=== PATIENT | female | born 1980 | race Caucasian/White ===

== ENCOUNTER → 2021-03-22 11:52 | Outpatient (CLI) | payer OTHER, SELFPAY ==
--- NOTE | ~2021-03-22 | XR_ITS ---
XR elbow RT min 3V DATE: 03/22/2021 12:46 INDICATION: Right arm pain TECHNIQUE: 4 views COMPARISON: None FINDINGS: No fracture or dislocation or joint effusion. No periosteal reaction or bone destruction. IMPRESSION: Negative Reviewed, dictated and finalized at location A. IMPRESSION: Negative
== END ==
PROVIDERS: PCP Family Medicine; Visit Provider Physician Assistant
DX: M79.601 Pain in right arm (principal)
CPT/HCPCS: 73080

== ENCOUNTER 2023-01-21 13:31 | Outpatient (CLI) | payer OTHER, SELFPAY ==
--- NOTE | ~2023-01-21 | PE_ITS ---
EXAMINATION: PET skull to mid thigh DATE: 01/21/2023 15:14 INDICATION: Mesenteric lymphadenopathy. TECHNIQUE: Blood glucose level was 99 mg/dL. 10.815 mCi of 18-fluorodeoxyglucose (18-FDG) was adminis tered i.v. Low dose computed tomography (CT) images were acquired from the base of the brain to the p roximal thighs for attenuation correction and anatomic localization. Automated exposure control was e mployed. Dose-length product (DLP) was 511 mGy-cm. Positron emission tomography (PET) images were acq uired in the same distribution. COMPARISON: None FINDINGS: Head/neck: There are no pathologically enlarged lymph nodes. Chest: There is no pneumonia or pleural effusion. The heart size is normal. No pericardial effusion. There are no pathologically enlarged lymph nodes. Abdomen/pelvis/proximal thighs: The liver, gallbladder, spleen, pancreas, adrenal glands, and kidneys are normal. There are surgical changes of the stomach. There are no pathologically enlarged lymph no pallavi. There is no free intraperitoneal fluid. There is an intrauterine device in expected position. Th e bones are unremarkable. IMPRESSION: 1. No lymphadenopathy. Reviewed, dictated and finalized at location A. IMPRESSION: 1. No lymphadenopathy.
[2023-01-21 13:51] LABS: Glucose Point of Care 99 mg/dl (65-105)
== END 2023-01-21 13:32 | disposition home or self-care (01) ==
PROVIDERS: PCP Internal Medicine; Visit Provider Internal Medicine
DX: R59.0 Localized enlarged lymph nodes (principal)
CPT/HCPCS: 78815; A9552

== ENCOUNTER 2024-07-22 13:53 | Outpatient (CLI) | payer OTHER, SELFPAY ==
--- NOTE | ~2024-07-22 | US_ITS ---
EXAM: PELVIC ULTRASOUND HISTORY: R10.2 - Pelvic and perineal pain . 2 para 2. COMPARISON: None. FINDINGS: UTERUS: 9.6 x 4.6 x 5.9 cm. The uterus is anteverted and anteflexed. The endometrial complex measures 6 mm. Trace free fluid within the endometrial canal. Intrauterine device is present, in good position. RIGHT OVARY: The right ovary is unremarkable in echogenicity and size measuring 2.5 x 1.9 x 2.6 cm. Arterial and venous flow are identified. LEFT OVARY: The left ovary is unremarkable in echogenicity and size measuring 2.9 x 1.9 x 2.3 cm Both arterial and venous flow are identified. Dominant follicle is present measuring 19 mm. No free fluid is identified within the pelvis. IMPRESSION: Dominant follicle within the left ovary. Intrauterine device in good position. Trace free fluid within the endometrial canal. Reviewed, dictated and finalized at location A. [facility]
== END 2024-07-22 13:54 | disposition home or self-care (01) ==
LOC: MICIMG 13:54
PROVIDERS: PCP Obstetrics & Gynecology; Visit Provider Obstetrics & Gynecology
DX: N83.02 Follicular cyst of left ovary (principal); Z97.5 Presence of (intrauterine) contraceptive device
CPT/HCPCS: 76830; 76856

== ENCOUNTER 2025-06-03 16:42 | Emergency (ER) | payer OTHER, SELFPAY ==
[2025-06-03 16:43] VITALS: BP 147/91; PULSE 112; RESP 16; TEMP 36.8; O2SAT 97
--- NOTE | 2025-06-03 17:00 | PC.NURSE ---
HAS ARRIVED AND SITTING WITH PATIENT IN WAITING ROOM WHILE AWAITING OPEN BED.
--- NOTE | 2025-06-03 17:24 | PC.NURSE ---
PT WAS SEEN WALKING OUT OF THE ED EXIT DOOR ACCOMPANIED BY HER . THEY SAID NOTHING TO ANY STAFF MEMBER PRIOR TO LEAVING. NICOLE YANCEY RN MADE AWARE.
== END 2025-06-03 17:24 | disposition left against medical advice (07) ==
DX: Z04.1 Encounter for examination and observation following transport accident (principal)
CPT/HCPCS: 99199